=== PATIENT | male | born 1960 | race Caucasian/White ===

== ENCOUNTER 2018-07-28 07:56 | Inpatient (IN) | payer OTHER ==
[~2018-07-28] VITALS: Ht 190.5 cm; Wt 108.9 kg
[~2018-07-28 07:56] MED LIST: CYCL10 PO; EXTRA STRENGTH500 MG PO; IBUP800 PO; OMEPRAZOLE20 MG PO; OXYC5 PO
[2018-07-28 08:20] LABS: Source, Urine Clean Catch
[2018-07-28 08:29] LABS: Bilirubin, Urine Neg (Neg); Blood, Urine 1+ (Neg); Glucose Qualitative, Urine Neg (Neg); Ketones, Urine Neg (Neg); Leukocyte Esterase, Urine Neg (Neg); Nitrite, Urine Neg (Neg); Protein, Urine Neg (Neg); Specific Gravity, Urine 1.025 (1.003-1.022); Urobilinogen, Urine NORM (Normal)
[2018-07-28 08:43] LABS: Appearance, Urine Clear (Clear); Color, Urine Yellow (P-Yellow)
[2018-07-28 08:46] LABS: Red Blood Cells, Urine Rare /hpf (0-2); White Blood Cells, Urine 0-2 /hpf (0-5)
[2018-07-28 08:47] LABS: Bacteria Rare /hpf; Squamous Epithelial Cells Rare /hpf (Few)
[2018-07-28 09:00] LABS: BASOPHILS ABSOLUTE AUTO 0.03 K/mm3 (0.00-0.23); BASOPHILS PERCENT AUTO 0 % (0-2); EOSINOPHILS ABSOLUTE AUTO 0.14 K/mm3 (0.00-0.68); EOSINOPHILS PERCENT AUTO 2 % (0-6); Hematocrit 46.3 % (37.0-53.0); Hemoglobin 15.6 g/dL (13.5-17.5); IMMATURE GRAN ABSOLUTE AUTO 0.03 K/mm3 (0.00-0.10); IMMATURE GRAN PERCENT AUTO 0 % (0-1); LYMPHOCYTES ABSOLUTE AUTO 2.44 K/mm3 (0.84-5.20); LYMPHOCYTES PERCENT AUTO 31 % (21-46); MONOCYTES ABSOLUTE AUTO 0.75 K/mm3 (0.16-1.47); MONOCYTES PERCENT AUTO 10 % (4-13); Mean Corpuscular HGB 30.2 pg (26.0-34.0); Mean Corpuscular HGB Conc 33.7 g/dL (31.5-36.5); Mean Corpuscular Volume 90 fL (80-100); NEUTROPHILS ABSOLUTE AUTO 4.38 K/mm3 (1.96-9.15); NEUTROPHILS PERCENT AUTO 56 % (41-73); Platelet Count 172 K/mm3 (150-400); RDW Coefficient Variation 12.2 % (11.7-14.2); RDW Standard Deviation 40.4 fL (35.1-46.3); Red Blood Cell Count 5.16 M/mm3 (4.30-5.90); White Blood Cell Count 7.77 K/mm3 (4.00-11.30)
[2018-07-28 09:17] LABS: Alanine Aminotransfer (ALT/SGP 40 U/L (12-78); Albumin, Blood 3.8 g/dL (3.4-5.0); Albumin/Globulin Ratio 1.2 (0.8-1.8); Alk Phos 69 U/L (50-136); Anion Gap 9 mmol/L (6-16); Aspartate Aminotrans (AST/SGOT 22 U/L (12-37); Bilirubin, Total 0.6 mg/dL (0.1-1.0); Blood Urea Nitrogen 14 mg/dL (8-24); CO2, Blood 22 mmol/L (21-32); Calcium, Blood 8.9 mg/dL (8.5-10.1); Chloride, Blood 112 mmol/L (98-108); Creatinine, Blood 0.82 mg/dL (0.60-1.20); Globulin, Blood 3.3 g/dL (2.2-4.0); Glomerular Filtration Rate >60 (60-); Glucose, Blood 120 mg/dL (70-99); Potassium, Blood 3.9 mmol/L (3.5-5.5); Sodium, Blood 143 mmol/L (136-145); Total Protein, Blood 7.1 g/dL (6.4-8.2); Troponin I <0.015 ng/mL (0.000-0.040)
--- NOTE | 2018-07-28 11:52 | NUR ---
Patient up to Ambulate independently. Gait steady. Surgical site prepped with 2% Chlorhexidine cloth wipe. History, Chart, Medications and Allergies reviewed before start of procedure.Lungs clear T/O to Auscultation. Patient confirms NPO status and agrees with scheduled surgery. AT BEDSIDE. BELONGINGS PLACED UNDER THE BED.
--- NOTE | 2018-07-28 12:38 | NUR ---
up to bathroom at this time.
--- NOTE | 2018-07-28 13:47 | NUR ---
07/28/18 134Sandy Odonnell PT RECEIVED IV ANCEF [address] CARO
--- NOTE | 2018-07-28 16:13 | NUR ---
PT ARRIVED TO THE ROOM AT APPROXIMATELY 1510. PT ALERT AND ORIENTED. HE IS TEARFUL. HE RATES PAIN AT 8/10 AND STATES PAIN IS TOLERABLE. NORCO GIVEN. WILL CONTINUE TO MONITOR.
--- NOTE | 2018-07-28 16:15 | NUR ---
PAIN DR. HE NOTIFIED OF PAIN. PT REPORTED HE FELT UNABLE TO WAIT FOR PO MEDICATION TO WORK. WILL CONTINUE TO MONITOR.
[2018-07-28] MEDS ORDERED: Mapap500 M1 PO (16:59)
[2018-07-28] MEDS ORDERED: DIPH50 PO (17:00)
--- NOTE | 2018-07-28 18:59 | NUR ---
SHIFT SUMMARY PAIN REMAINS ELEVATED, BUT PT REPORTS IT IS TOLERABLE AT THIS TIME. PT TOLERATING PO. VSS. REPORT GIVEN TO ELIANA SLATER.
--- NOTE | 2018-07-29 04:27 | NUR ---
SHIFT SUMMARY PT IS POD 1 LEV SINHAE. HE IS TAKING A REGULAR DIET W/O N/V. HE DENIED PASSING FLATUS YET AT TIME OF ASSESSMENT. PAIN WAS MANAGED PER EMAR, IV PAIN MEDS REQUIRED FOR BREAKTHROUGH. PT IS A&O, ABLE TO MAKE NEEDS KNOWN. AMBULATING TO BR INDEPENDENTLY. WILL CTM UNTIL PASS TO NEXT SHIFT.
[2018-07-29] MEDS ORDERED: HYDR1TAB94 PO (10:41)
--- NOTE | 2018-07-29 11:30 | NUR ---
DISCHARGE SUMMARY PT A&OX4, VSS, LEFT FLOOR VIA WC WITH TO GO HOME WITH ALL PERSONAL POSSESSIONS INCLUDING DISCHARGE PACKET AND 1 NARC SCRIPT. DISCHARGE INSTRUCTIONS PROVIDED. PT REP UNDERSTANDING THOSE INSTRUCTIONS INCLUDING 2 WK FU WITH SG, LEAVE STERIS IN PLACE 7-10 DAYS, NO WORK OR DRIVING UNTIL RELEASED BY SURGEON AND NEVER WHILE TAKING NARCOTICS. IV DC'D.
== END 2018-07-29 10:49 | disposition home or self-care (01) | DRG 419 ==
LOC: ER 07:56 → SURS 07:57
PROVIDERS: Physician Assistant; ADMIT Surgery
PROC: BF031ZZ Plain Radiography of Gallbladder and Bile Ducts using Low Osmolar Contrast (ICD-10-PCS; 2018-07-28)
PROC: 0FT44ZZ Resection of Gallbladder, Percutaneous Endoscopic Approach (ICD-10-PCS; principal; 2018-07-28 13:15)
DX: K81.0 Acute cholecystitis (principal); K21.9 Gastro-esophageal reflux disease without esophagitis; E66.9 Obesity, unspecified; Z68.30 Body mass index [BMI] 30.0-30.9, adult; F17.200 Nicotine dependence, unspecified, uncomplicated
CPT/HCPCS: 36415; 74177; 74300; 76705; 80053; 81001; 83690; 84484; 85025; 88304; 93005; 93010; 96361; 96374; 96375; 96376; 99285-25; C1729; G0378; J0690; J1170; J1885; J2250; J2370; J2405; J2710; J3010; J7030; J7120; Q9967

== ENCOUNTER → 2022-03-31 | Outpatient (CLI) | payer OTHER ==
[~2022-03-31] MED LIST changes: +DIPH50 PO; +HYDR1TAB94 PO; +Mapap500 M1 PO
[2022-03-31 19:10] LABS: Campylobacter Sp Not Detected (NOT DETECT)
[2022-03-31 19:11] LABS: Adenovirus F 40/41 Not Detected (NOT DETECT); Astrovirus Not Detected (NOT DETECT); Cryptosporidium Not Detected (NOT DETECT); Cyclospora Cayetanensis Not Detected (NOT DETECT); E. Coli O157 Not Detected (NOT DETECT); Entamoeba Histolytica Not Detected (NOT DETECT); Enteroaggregative E. coli-EAEC Not Detected (NOT DETECT); Enteropathogenic E. coli-EPEC Not Detected (NOT DETECT); Enterotoxigenic E. coli-ETEC Not Detected (NOT DETECT); Giardia Lamblia Not Detected (NOT DETECT); Norovirus GI/GII Not Detected (NOT DETECT); Plesiomonas Shigelloides Not Detected (NOT DETECT); Rotavirus A Not Detected (NOT DETECT); Salmonella Sp Not Detected (NOT DETECT); Sapovirus Not Detected (NOT DETECT); Shiga Toxin-prod E. coli-STEC Not Detected (NOT DETECT); Vibrio Cholerae Not Detected (NOT DETECT); Vibrio Sp Not Detected (NOT DETECT); Yersinia Enterocolitica Not Detected (NOT DETECT)
[2022-03-31 19:12] LABS: Shigella/Enteroin E. coli-EIEC Not Detected (NOT DETECT)
== END ==
LOC: LAB 09:30 → LAB SHORT 09:30
PROVIDERS: Nurse Practitioner Family
DX: R19.7 Diarrhea, unspecified (principal)
CPT/HCPCS: 87324; 87507

== ENCOUNTER 2023-03-23 07:23 | Day surgery (SDC) | payer OTHER ==
[~2023-03-23] VITALS: Ht 185 cm; Wt 100.1 kg
[2023-03-23] VITALS (26 sets, daily range): BP systolic 112–162; BP diastolic 73–112
[~2023-03-23 07:23] MED LIST changes: +ALBU90OI; +CHOLP; +FAMO40
--- NOTE | 2023-03-23 08:05 | NUR ---
Patient states colon prep results clear. History, Chart, Medications and Allergies reviewed before start of procedure. Ambulatory in Day Surgery. Patient confirms NPO status and agrees with scheduled surgery. Pre-Op teaching done. Pt verbalizes understanding. Patient States Post-Procedure ride home has been arranged.
--- NOTE | 2023-03-23 08:09 | NUR ---
03/23/23 0809 Thomas Delatorre HISTORY, CHART, MEDICATIONS AND ALLERGIES REVIEWED BEFORE START OF PROCEDURE. PATIENT CONFIRMS NPO STATUS AND AGREES WITH SCHEDULED PROCEDURE. 3-LEAD EKG REVIEWED WITH PHYSICIAN PRIOR TO START OF PROCEDURE. MONITOR INTACT WITH CONTINUOUS PULSE OXIMETRY,CAPNOGRAPHY, 3-LEAD EKG, INTERMITTENT BP. SUPPLEMENTAL O2 TO BE TITRATED THROUGHOUT PROCEDURE TO MAINTAIN O2 SATURATION ABOVE 90%. PATIENT DETERMINED TO BE ASA APPROPRIATE FOR PROPOFOL SEDATION PRIOR TO START OF PROCEDURE BY DR. PAGE.
--- NOTE | 2023-03-23 09:28 | NUR ---
D/C NOTE: 0920 DR=714/86, HR=74, RR=18, SA02=98, PT DENIES PAIN AND NAUSEA BUT IS STILL HAVING SOME OCCASIONAL RETCHING. PT HAS EMESIS BAG PRN. PT DECLINED ICE CHIPS OR SIPS OF CLEARS, Discharge instructions reviewed with patient. Patient verbalizes understanding. Copy given to patient to take home. Patient up to Ambulate independently. Gait steady. Discharged via wheelchair to private car for ride home W/ GIRLFRIEND.
== END 2023-03-23 09:33 | disposition home or self-care (01) ==
LOC: ORSCMMR 07:23 → ORD 08:00 → ORSCMMR 08:00
PROVIDERS: Internal Medicine Gastroenterology
PROC: 0DB58ZX Excision of Esophagus, Via Natural or Artificial Opening Endoscopic, Diagnostic (ICD-10-PCS; principal; 2023-03-23 08:00)
PROC: 0DBN8ZX Excision of Sigmoid Colon, Via Natural or Artificial Opening Endoscopic, Diagnostic (ICD-10-PCS; principal; 2023-03-23 08:00)
PROC: 0DB48ZX Excision of Esophagogastric Junction, Via Natural or Artificial Opening Endoscopic, Diagnostic (ICD-10-PCS; principal; 2023-03-23 08:00)
PROC: 0DB98ZX Excision of Duodenum, Via Natural or Artificial Opening Endoscopic, Diagnostic (ICD-10-PCS; principal; 2023-03-23 08:00)
PROC: 0DB78ZX Excision of Stomach, Pylorus, Via Natural or Artificial Opening Endoscopic, Diagnostic (ICD-10-PCS; principal; 2023-03-23 08:00)
DX: R11.0 Nausea (principal); K21.9 Gastro-esophageal reflux disease without esophagitis; R10.33 Periumbilical pain; K63.5 Polyp of colon; Z86.010 Personal history of colon polyps; K44.9 Diaphragmatic hernia without obstruction or gangrene; K64.8 Other hemorrhoids; Z79.899 Other long term (current) drug therapy
CPT/HCPCS: 88305; 88342; A9270; J2250; J2405; J2704; J7120